=== PATIENT | male | born 1985 | race Caucasian/White ===

== ENCOUNTER 2016-11-27 06:46 | Emergency (ER) | payer OTHER ==
[~2016-11-27 06:46] MED LIST: NO MEDICATIONS
== END 2016-11-27 07:13 | disposition home or self-care (01) ==
LOC: SED 06:46
DX: J02.9 Acute pharyngitis, unspecified (principal); J32.9 Chronic sinusitis, unspecified; F17.200 Nicotine dependence, unspecified, uncomplicated
CPT/HCPCS: 99283